=== PATIENT | female | born 1990 | race Caucasian/White ===

== ENCOUNTER 2022-05-20 08:41 | Emergency (ER) | payer OTHER ==
[~2022-05-20] VITALS: Ht 177.8 cm; Wt 90.7 kg
[2022-05-20] MEDS ORDERED: KATERZIA1 MG/1 ML PO (09:17)
[2022-05-20] MEDS ORDERED: IBUP200 PO (09:18)
[2022-05-20] MEDS ORDERED: OXYB5ER PO (09:18)
[2022-05-20] MEDS ORDERED: SERT100 PO (09:18)
== END 2022-05-20 09:56 | disposition home or self-care (01) ==
LOC: ER 08:41
DX: S61.211A Laceration without foreign body of left index finger without damage to nail, initial encounter (principal); I10 Essential (primary) hypertension; W26.8XXA Contact with other sharp object(s), not elsewhere classified, initial encounter; Z79.899 Other long term (current) drug therapy
CPT/HCPCS: 99282